=== PATIENT | female | born 1965 | race Caucasian/White ===

== ENCOUNTER 2020-10-06 16:21 | Emergency (ER) | payer MEDICAID ==
[~2020-10-06] VITALS: Ht 152.4 cm; Wt 59.0 kg
[2020-10-06 16:26] VITALS: Ht 152.4 cm; Wt 59.0 kg
[2020-10-06] MEDS ORDERED: SYNTHROID50 MCG (16:28)
[2020-10-06] MEDS ORDERED: VALIUM5 MG (16:28)
[2020-10-06] MEDS ORDERED: PERCOCET 7.5/321 TAB PO (18:06)
[2020-10-06 18:10] VITALS: BP 102/57
== END 2020-10-06 18:42 | disposition home or self-care (01) ==
LOC: D.ER 16:21
DX: S82.301A Unspecified fracture of lower end of right tibia, initial encounter for closed fracture (principal); W13.1XXA Fall from, out of or through bridge, initial encounter; Y93.9 Activity, unspecified; Y92.9 Unspecified place or not applicable; M79.10 Myalgia, unspecified site; T14.8XXA Other injury of unspecified body region, initial encounter